=== PATIENT | female | born 1965 | race African-American/Black ===

== ENCOUNTER 2018-12-13 16:43 | Inpatient (IN) | payer BC, MEDICAID, OTHER ==
[~2018-12-13] VITALS: Ht 157.5 cm; Wt 68.9 kg
[2018-12-13 22:44] LABS: CLARITY URINE CLOUDY (CLEAR); COLOR URINE YELLOW (YELLOW); KETONES URINE NEGATIVE (NEGATIVE); LEUKOCYTE ESTERASE URINE 1+ (NEGATIVE); NITRITE URINE NEGATIVE (NEGATIVE); OCCULT BLOOD URINE NEGATIVE (NEGATIVE); PH URINE 5.5 (4.5-8.0); PROTEIN URINE NEGATIVE (NEGATIVE); SPECIFIC GRAVITY URINE 1.016 (1.005-1.030); UROBILINOGEN URINE 0.2 E.U./dL (0.2-1.0)
[2018-12-13 23:03] LABS: BASOPHILS % 0.5 % (0.0-2.0); EOSINOPHILS % 2.3 % (0.0-5.0); HEMATOCRIT. 36.4 % (36.0-48.0); HEMOGLOBIN. 12.6 g/dL (12.0-16.0); LYMPHOCYTES % 29.9 % (20.0-50.0); MEAN CORPUSCULAR HEMOGLOBIN 32.7 pg (28.0-32.0); MEAN CORPUSCULAR VOLUME 94.7 fL (81.0-99.0); MEAN PLATELET VOLUME 9.5 fl (7.4-10.4); MONOCYTES % 9.1 % (2.0-8.0); NEUTROPHILS % 58.2 % (40.0-76.0); PLATELET 189 x1000/uL (130-400); RED BLOOD CELL COUNT 3.85 mill/uL (4.2-5.4); RED CELL DISTRIBUTION WIDTH 13.3 % (11.6-14.6)
[2018-12-13 23:08] LABS: CHLORIDE 108 mEq/L (98-107)
[2018-12-13 23:15] LABS: INR 0.9; PROTHROMBIN TIME 9.7 sec (9.6-11.0)
[2018-12-14] MEDS ORDERED: MORPHINE SULFATE 2 MG/ML CPJ (NOT FOR IM USE) IV ONE (02:00)
[2018-12-14] MEDS ORDERED: IOHEXOL-300 100 ML BOTTLE ONE (02:04)
[2018-12-14 03:16] VITALS: BP 143/69
[2018-12-14 04:00] VITALS: BP 149/79
[2018-12-14] MEDS ORDERED: ZOLPIDEM TARTRATE 5MG TABLET PO PRN (05:15)
[2018-12-14] MEDS ORDERED: ACETAMINOPHEN 325MG TABLET PO PRN (05:15)
[2018-12-14] MEDS ORDERED: HYDROCODONE/ACETAMINOPHEN 5/325MG TABLET PO PRN (05:15)
[2018-12-14] MEDS ORDERED: ONDANSETRON HCL 4MG/2ML INJ IV PRN ×2 (05:45→10:00)
[2018-12-14 08:00] VITALS: BP 118/82
[2018-12-14] MEDS ORDERED: PNEUMOCOCCAL 23-VAL P-SAC VAC 0.5 ML IM ONE (08:00)
[2018-12-14] MEDS ORDERED: IPRATROPIUM/ALBUTEROL 0.5-3(2.5)MG/3ML NEB INH PRN (10:00)
[2018-12-14] MEDS ORDERED: CLONIDINE 0.1MG TABLET PO PRN (10:00)
[2018-12-14] MEDS ORDERED: LORAZEPAM 0.5MG TABLET PO PRN (10:00)
[2018-12-14] MEDS ORDERED: MORPHINE SULFATE 2 MG/ML CPJ (NOT FOR IM USE) IV PRN (10:00)
[2018-12-14] MEDS: PANTOPRAZOLE 40MG DR TABLET PO SCH ×2 (10:17→20:52)
[2018-12-14] MEDS: HYDROCODONE/ACETAMINOPHEN 10/325MG TABLET PO PRN ×2 (10:18→18:00)
[2018-12-14] MEDS ORDERED: BISACODYL 5MG TABLET PO NR (10:45)
[2018-12-14 11:38] LABS: BASOPHILS % 0.5 % (0.0-2.0); EOSINOPHILS % 2.1 % (0.0-5.0); HEMATOCRIT. 34.2 % (36.0-48.0); LYMPHOCYTES % 29.3 % (20.0-50.0); MEAN CORPUSCULAR VOLUME 93.8 fL (81.0-99.0); MEAN PLATELET VOLUME 9.5 fl (7.4-10.4); MONOCYTES % 8.9 % (2.0-8.0); NEUTROPHILS % 59.2 % (40.0-76.0); PLATELET 175 x1000/uL (130-400); RED BLOOD CELL COUNT 3.65 mill/uL (4.2-5.4); RED CELL DISTRIBUTION WIDTH 13.2 % (11.6-14.6)
[2018-12-14] MEDS: SUCRALFATE 1 G/10 ML UDC PO SCH ×3 (11:40→20:51)
[2018-12-14 12:00] VITALS: BP 156/88
[2018-12-14 13:07] LABS: CHLORIDE 108 mEq/L (98-107)
[2018-12-14] MEDS ORDERED: POLYETHYLENE GLYCOL 3350 (17GM) 1 DOSE PACK PO PRN (15:00)
[2018-12-14] MEDS ORDERED: BISACODYL 10MG SUPP PR PRN (15:15)
[2018-12-14] MEDS ORDERED: LACTULOSE 20G/30ML UDC PO NR (15:15)
[2018-12-14 15:25] LABS: BASOPHILS % 0.4 % (0.0-2.0); EOSINOPHILS % 1.9 % (0.0-5.0); HEMATOCRIT. 35.9 % (36.0-48.0); HEMOGLOBIN. 12.3 g/dL (12.0-16.0); LYMPHOCYTES % 30.4 % (20.0-50.0); MEAN CORPUSCULAR HEMOGLOBIN 32.3 pg (28.0-32.0); MEAN CORPUSCULAR VOLUME 94.4 fL (81.0-99.0); MEAN PLATELET VOLUME 9.2 fl (7.4-10.4); MONOCYTES % 7.4 % (2.0-8.0); NEUTROPHILS % 59.9 % (40.0-76.0); PLATELET 181 x1000/uL (130-400); RED CELL DISTRIBUTION WIDTH 13.2 % (11.6-14.6)
[2018-12-14 15:36] LABS: *AMPHETAMINES SCREEN URINE NEGATIVE (NEGATIVE); *BARBITURATES SCREEN URINE NEGATIVE (NEGATIVE); *BENZODIAZEPINES SCREEN URINE NEGATIVE (NEGATIVE)
[2018-12-14 15:37] LABS: *COCAINE SCREEN URINE NEGATIVE (NEGATIVE); CANNABINOID URINE SCREEN PRESUMTIVE POSITIVE (NEGATIVE); METHADONE URINE SCREEN NEGATIVE (NEGATIVE); OPIATES URINE SCREEN NEGATIVE (NEGATIVE); PHENCYCLIDINE URINE SCREEN NEGATIVE (NEGATIVE)
[2018-12-14 16:00] VITALS: BP 144/90
[2018-12-14 16:08] LABS: TOTAL IRON BINDING CAPACITY 329 ug/dL (250-450)
[2018-12-14] MEDS: AMLODIPINE 5MG TABLET PO SCH (18:00)
[2018-12-14 20:15] VITALS: BP 170/112
[2018-12-14] MEDS ORDERED: GABA800T97 PO (23:59)
[2018-12-14] MEDS ORDERED: LORA1TAB PO (23:59)
[2018-12-15] VITALS: BP 128/77
[2018-12-15] MEDS ORDERED: NAPR-1074 PO
[2018-12-15] MEDS ORDERED: TRAM50TA3 MT (00:01)
[2018-12-15] MEDS ORDERED: AMLO10TA80 MT (00:03)
[2018-12-15] MEDS ORDERED: LABE200T28 MT (00:04)
[2018-12-15] MEDS ORDERED: BACL-141 MT (00:04)
[2018-12-15] MEDS ORDERED: OMEP40CA34 MT (00:06)
[2018-12-15] MEDS ORDERED: MIRT15TA6 PO (00:06)
[2018-12-15] MEDS ORDERED: ESCI5SOL2 MT (00:07)
[2018-12-15] MEDS ORDERED: IBUP-2030 PO (00:08)
[2018-12-15] MEDS ORDERED: CYCL5TAB PO (00:12)
[2018-12-15 04:00] VITALS: BP 140/78
[2018-12-15] MEDS: SUCRALFATE 1 G/10 ML UDC PO SCH ×3 (06:23→17:04)
[2018-12-15 08:00] VITALS: BP 147/84
[2018-12-15 08:03] LABS: BASOPHILS % 0.3 % (0.0-2.0); EOSINOPHILS % 1.9 % (0.0-5.0); HEMATOCRIT. 37.1 % (36.0-48.0); HEMOGLOBIN. 12.7 g/dL (12.0-16.0); LYMPHOCYTES % 28.6 % (20.0-50.0); MEAN CORPUSCULAR HEMOGLOBIN 32.4 pg (28.0-32.0); MEAN CORPUSCULAR VOLUME 94.7 fL (81.0-99.0); MEAN PLATELET VOLUME 9.1 fl (7.4-10.4); MONOCYTES % 7.6 % (2.0-8.0); NEUTROPHILS % 61.6 % (40.0-76.0); PLATELET 172 x1000/uL (130-400); RED BLOOD CELL COUNT 3.92 mill/uL (4.2-5.4); RED CELL DISTRIBUTION WIDTH 13.3 % (11.6-14.6)
[2018-12-15 08:10] LABS: CHLORIDE 105 mEq/L (98-107)
[2018-12-15] MEDS: PANTOPRAZOLE 40MG DR TABLET PO SCH (09:21)
[2018-12-15] MEDS: AMLODIPINE 5MG TABLET PO SCH (09:22)
[2018-12-15] MEDS: HYDROCODONE/ACETAMINOPHEN 10/325MG TABLET PO PRN (12:18)
[2018-12-15 12:20] VITALS: BP 154/86
[2018-12-15] MEDS ORDERED: NICOTINE 14MG PATCH TD SCH (13:00)
[2018-12-15 15:57] VITALS: BP 136/96
[2018-12-15 17:56] VITALS: BP 136/88
[2018-12-17 13:12] LABS: HGB A 58.2 % (96.4-98.8); HGB A2 3.9 % (1.8-3.2); HGB S 37.9 % (0.0); HGB SOLUBILITY Positive (Negative)
== END 2018-12-15 18:26 | disposition home or self-care (01) | DRG 244 ==
LOC: ER 16:43 → 6WST 12-14 00:26 → EDBEDREQ 12-14 00:32 → EDBEDREQTM 12-14 00:32 → EDBEDREQDT 12-14 00:32 → ENRESERV 12-14 02:01
PROVIDERS: ADMIT Internal Medicine; ATTEND Internal Medicine
DX: K57.31 Diverticulosis of large intestine without perforation or abscess with bleeding (principal); D57.1 Sickle-cell disease without crisis; K27.4 Chronic or unspecified peptic ulcer, site unspecified, with hemorrhage; D72.821 Monocytosis (symptomatic); E87.6 Hypokalemia; F10.10 Alcohol abuse, uncomplicated; F17.210 Nicotine dependence, cigarettes, uncomplicated; G89.29 Other chronic pain; I10 Essential (primary) hypertension; K21.9 Gastro-esophageal reflux disease without esophagitis; M54.9 Dorsalgia, unspecified; Z90.49 Acquired absence of other specified parts of digestive tract; K62.5 Hemorrhage of anus and rectum; F41.9 Anxiety disorder, unspecified; F12.90 Cannabis use, unspecified, uncomplicated; N39.0 Urinary tract infection, site not specified; K59.00 Constipation, unspecified
CPT/HCPCS: 36415; 74177; 80048; 80305; 82270; 82728; 83021; 83540; 83550; 83735; 85660; 86850; 86900; 90732; 96374; 99285; J2270; J2405; Q9967

== ENCOUNTER 2023-01-06 16:40 | Emergency (ER) | payer MEDICAID ==
[~2023-01-06] VITALS: Ht 162.6 cm; Wt 58.0 kg
[~2023-01-06 16:40] MED LIST: AMLO10TA80 MT; BACL-141 MT; ESCI5SOL2 MT; GABA800T97 PO; LORA1TAB PO; MIRT-89 PO; OMEP40CA20 MT
[2023-01-06 16:51] VITALS: BP 113/69; PULSE 68; RESP 20; TEMP 98.6; O2SAT 100
== END 2023-01-06 19:09 | disposition home or self-care (01) ==
LOC: ER 16:40
DX: H11.32 Conjunctival hemorrhage, left eye (principal)
CPT/HCPCS: 99281

== ENCOUNTER 2024-05-05 13:41 | Emergency (ER) | payer BC, MEDICAID ==
[~2024-05-05] VITALS: Ht 165.1 cm; Wt 70.0 kg
[2024-05-05 14:09] VITALS: BP 108/68; PULSE 64; RESP 18; TEMP 98.4; O2SAT 99
[2024-05-05] MEDS ORDERED: HYDROCODONE/ACETAMINOPHEN 5/325MG TABLET PO STA (17:30)
[2024-05-05] MEDS: FLUORESCEIN SODIUM 1MG/STRIP LEFTEYE SCH (20:25)
[2024-05-05] MEDS: HYDROCODONE/ACETAMINOPHEN 5/325MG TABLET PO SCH (20:25)
[2024-05-05] MEDS: TETRACAINE 0.5% OPHTH DROPS 4ML LEFTEYE SCH (20:25)
[2024-05-05] MEDS: BALANCED SALT IRRIG SOLN 15ML IR ONE (20:25)
[2024-05-05] MEDS ORDERED: ERYT1OIN6 LEFTEYE (21:03)
[2024-05-05] MEDS ORDERED: DOXY100C74 MT (21:03)
[2024-05-05] MEDS ORDERED: NAPR-681 PO (21:03)
[2024-05-05] MEDS ORDERED: HYDR-4001 PO (21:03)
[2024-05-05] MEDS: BALANCED SALT IRRIG SOLN 15ML IR SCH (21:09)
[2024-05-05] MEDS: TETRACAINE 0.5% OPHTH DROPS 4ML LEFTEYE ONE (21:10)
[2024-05-05] MEDS: FLUORESCEIN SODIUM 1MG/STRIP LEFTEYE ONE (21:10)
== END 2024-05-05 21:18 | disposition home or self-care (01) ==
LOC: ER 13:41
DX: S00.83XA Contusion of other part of head, initial encounter (principal); S13.4XXA Sprain of ligaments of cervical spine, initial encounter; S00.12XA Contusion of left eyelid and periocular area, initial encounter; M54.50 Low back pain, unspecified; W18.39XA Other fall on same level, initial encounter; Y93.89 Activity, other specified; Y92.89 Other specified places as the place of occurrence of the external cause; Y99.8 Other external cause status
CPT/HCPCS: 70486; 74176; 99284

== ENCOUNTER 2024-12-05 13:22 | Emergency (ER) | payer BC, MEDICAID ==
[~2024-12-05] VITALS: Ht 152.4 cm; Wt 69.0 kg
[~2024-12-05 13:22] MED LIST changes: +DOXY-461 MT; +ERYT1OIN6 LEFTEYE; +HYDR-4001 PO; +NAPR-681 PO
[2024-12-05 14:00] VITALS: O2SAT 100
[2024-12-05 15:48] VITALS: BP 142/84; PULSE 74; RESP 18; TEMP 36.7; O2SAT 100
== END 2024-12-05 15:50 | disposition home or self-care (01) ==
LOC: ER 13:48
DX: R20.2 Paresthesia of skin (principal); I10 Essential (primary) hypertension; Z79.899 Other long term (current) drug therapy; Z86.73 Personal history of transient ischemic attack (TIA), and cerebral infarction without residual deficits; Z90.49 Acquired absence of other specified parts of digestive tract
CPT/HCPCS: 82962; 99284